=== PATIENT | male | born 1945 | race Caucasian/White ===

== ENCOUNTER → 2018-11-08 08:03 | Outpatient (CLI) | payer MEDICARE, SELFPAY ==
--- NOTE | 2018-11-08 08:12 | DI.RAD.S_ITS ---
PROCEDURE: XR CHEST 2V INDICATIONS: MALIGNANT NEOPLASM OF URINARY BLADDER, UNSPECIFIED SITE TECHNIQUE: 2 views of the chest were acquired. COMPARISON: [facility], CT, IVP (ABD & PEL WWO CONTRAST), 07/11/2013, 7:37. [facility], CT, CT IVP, 07/25/2017, 16:00. [facility], CR, CHEST 2 VIEW, 05/25/2011, 17:51. FINDINGS: Surgical changes and devices: None. Lungs and pleura: Lungs are mildly abnormal with a chronic appearing mild interstitial prominence previously present. This may reflect a prior smoking history. No pleural effusions or pneumothorax. Mediastinum: Mediastinal contours are normal. Heart size is normal. Bones and chest wall: No suspicious bony abnormalities. Soft tissues appear unremarkable. IMPRESSION: No metastatic disease found. Mild interstitial prominence, stable over time, possible prior smoking history. Dictated by: Meir Christian M.D. on 11/08/2018 at 8:45 Approved by: Meir Christian M.D. on 11/08/2018 at 8:46
[2018-11-08 10:06] LABS: Alanine Aminotransferase 28 IU/L (21-72); Albumin 3.8 g/dL (3.5-5.0); Albumin Globulin Ratio 1.3 (1.0-2.8); Alkaline Phosphatase 56 U/L (38-126); Aspartate Aminotransferase 28 IU/L (17-59); BUN Creatinine Ratio 20.8 (6-22); Bilirubin Total 0.8 mg/dL (0.2-1.3); Blood Urea Nitrogen 25 mg/dL (9-20); Carbon Dioxide 25 mmol/L (22-32); Chloride 100 mmol/L (98-107); Globulin 2.9 g/dL (1.7-4.1); Glucose 86 mg/dL (80-110); HEMOLYSIS < 15 (0-50); Potassium 4.3 mmol/L (3.4-5.1); Sodium 137 mmol/L (137-145); Total Protein 6.7 g/dL (6.3-8.2)
== END ==
PROVIDERS: Family Provider Internal Medicine; PCP Internal Medicine; Visit Provider Urology
DX: C67.9 Malignant neoplasm of bladder, unspecified (principal)
CPT/HCPCS: 36415; 71046; 80053

== ENCOUNTER → 2019-11-17 07:53 | Outpatient (CLI) | payer MEDICARE, SELFPAY ==
[2019-11-17 09:26] LABS: Alanine Aminotransferase 11 IU/L (<50); Albumin 4.3 g/dL (3.5-5.0); Albumin Globulin Ratio 1.4 (1.0-2.8); Alkaline Phosphatase 60 U/L (38-126); Aspartate Aminotransferase 33 IU/L (17-59); BUN Creatinine Ratio 24.6 (6-22); Bilirubin Total 0.9 mg/dL (0.2-1.3); Blood Urea Nitrogen 32 mg/dL (9-20); Calcium 9.3 mg/dL (8.4-10.2); Carbon Dioxide 24 mmol/L (22-32); Chloride 107 mmol/L (98-107); Cholesterol 210 mg/dL (140-199); Estimated Glomerular Filt Rate 53.7 mL/min (>60); Globulin 3.1 g/dL (1.7-4.1); Glucose 108 mg/dL (80-110); HDL Cholesterol 45 mg/dL (40-60); HEMOLYSIS < 15 (0-50); LDL Cholesterol Calculated 142 mg/dL (<100); Potassium 4.4 mmol/L (3.4-5.1); Sodium 140 mmol/L (137-145); Total Protein 7.4 g/dL (6.3-8.2); Triglycerides 113 mg/dL (35-150)
[2019-11-17 10:10] LABS: Vitamin B12 > 1000 pg/mL (239-931)
[2019-11-19 17:15] LABS: Prostate Specific Antigen < 0.064 ng/mL (0.10-4.00)
== END ==
PROVIDERS: Family Provider Internal Medicine; PCP Internal Medicine; Referring Provider Urology; Visit Provider Internal Medicine
DX: E78.5 Hyperlipidemia, unspecified (principal); D51.9 Vitamin B12 deficiency anemia, unspecified; Z85.46 Personal history of malignant neoplasm of prostate; Z85.51 Personal history of malignant neoplasm of bladder
CPT/HCPCS: 36415; 80053; 80061; 82607; 84153

== ENCOUNTER → 2019-11-21 10:10 | Outpatient (CLI) | payer MEDICARE, SELFPAY ==
--- NOTE | 2019-11-21 | DI.US.S_ITS ---
PROCEDURE: US RENAL COMPLETE INDICATIONS: HISTORY BLADDER CANCER TECHNIQUE: Real-time scanning was performed of the kidneys and bladder, with image documentation. COMPARISON: [facility], , RENAL COMPLETE, 07/14/2016, 9:59. [facility], , RENAL COMPLETE, 06/10/2015, 12:46. FINDINGS: Kidneys: Kidneys are normal in size. Right kidney measures 10.4 cm long; left kidney measures 10.9 cm long. Right renal cortical thickness is 1.4 cm; left renal cortical thickness is 1.7 cm. Renal cortical echotexture is normal. No hydronephrosis or nephrolithiasis. No suspicious solid mass lesions. There is a small simple cyst left kidney anteriorly, measuring up to 1.3 x 1.2 x 1.8 cm. 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 Miscellaneous: No free pelvic fluid. IMPRESSION: Normal-appearing kidneys, neobladder is not abnormally distended prior to voiding and post void residual is 41 cc. Dictated by: Meir Christian M.D. on 11/21/2019 at 13:20 Approved by: Meir Christian M.D. on 11/21/2019 at 13:22
--- NOTE | 2019-11-21 | DI.RAD.S_ITS ---
PROCEDURE: XR CHEST 2V INDICATIONS: Personal history of malignant neoplasm of bladder TECHNIQUE: 2 views of the chest were acquired. COMPARISON: CT, CT IVP, 07/25/2017, 16:00. [facility], CR, XR CHEST 2V, 11/08/2018, 8:26. [facility], CR, CHEST 2 VIEW, 05/25/2011, 17:51. FINDINGS: Surgical changes and devices: None. Lungs and pleura: Lungs are clear. No pleural effusions or pneumothorax. Mediastinum: Mediastinal contours are normal. Heart size is normal. Bones and chest wall: No suspicious bony abnormalities. Soft tissues appear unremarkable. IMPRESSION: Normal examination without evidence of mass lesion identified. Dictated by: Meir Christian M.D. on 11/21/2019 at 11:52 Approved by: Meir Christian M.D. on 11/21/2019 at 11:53
== END ==
PROVIDERS: Family Provider Internal Medicine; PCP Internal Medicine; Referring Provider Internal Medicine; Visit Provider Urology
DX: Z08 Encounter for follow-up examination after completed treatment for malignant neoplasm (principal); Z85.51 Personal history of malignant neoplasm of bladder
CPT/HCPCS: 71046; 76770

== ENCOUNTER 2020-12-10 13:51 | Emergency (ER) | payer OTHER, SELFPAY ==
[2020-12-10] VITALS (8 sets, daily range): BP systolic 130–179; BP diastolic 67–78; PULSE 50–60; RESP 12–20; TEMP 36.7; O2SAT 95–99; BMI 25.7
--- NOTE | 2020-12-10 14:04 | DI.RAD.S_ITS ---
PROCEDURE: XR CHEST 1V INDICATIONS: Possible stroke TECHNIQUE: One view of the chest was acquired. COMPARISON: [facility], CR, XR CHEST 2V, 11/21/2019, 10:16. FINDINGS: Surgical changes and devices: None. Lungs and pleura: Lungs are clear. No pleural effusions or pneumothorax. Mediastinum: Mediastinal contours appear normal. Heart size is normal. Bones and chest wall: No suspicious bony lesions. Overlying soft tissues appear unremarkable. IMPRESSION: No acute cardiopulmonary disease process. Dictated by: Mary Pal MD, PhD on 12/10/2020 at 14:44 Approved by: Mary Pal MD, PhD on 12/10/2020 at 14:45
--- NOTE | 2020-12-10 14:04 | DI.CT.S_ITS ---
PROCEDURE: CT STROKE INDICATIONS: confusion earlier,.sx resolved TECHNIQUE: Noncontrast 4.5 mm thick angled axial sections acquired from the foramen magnum to the vertex, with coronal reformats. For radiation dose reduction, the following was used: automated exposure control, adjustment of mA and/or kV according to patient size. COMPARISON: None. FINDINGS: Image quality: Excellent. CSF spaces: Basal cisterns are patent. No extra-axial fluid collections. The ventricles are symmetric in size and shape. Brain: No intracranial bleeds or masses. There is cerebral volume loss for age, with resultant ventricular and sulcal prominence. There are periventricular and deep white matter chronic small vessel ischemic changes. Small chronic left thalamic lacunar infarct. There is intracranial internal carotid artery atherosclerosis. Skull and face: Calvarium and visualized facial bones appear intact, without suspicious lesions. Sinuses: Visualized sinuses and mastoids are clear. IMPRESSION: No acute intracranial disease process. Findings telephoned to Dr. Car on December 10, 2020 at 2:29 p.m. This study fulfills neurological imaging criteria for inclusion or exclusion of acute stroke therapies based on available published neurological guidelines. Dictated by: Mary Pal MD, PhD on 12/10/2020 at 14:29 Approved by: Mary Pal MD, PhD on 12/10/2020 at 14:31
[2020-12-10 14:20] LABS: Add Manual Diff / Slide Review NO; Basophils Absolute Auto 0 /uL (0-100); Basophils Percent Auto 0.6 % (0-2); Eosinophils Absolute Auto 100 /uL (0-450); Eosinophils Percent Auto 0.9 % (2-4); Hematocrit 44.7 % (41-53); Hemoglobin 15.3 g/dL (13.5-17.5); Lymphocytes Absolute Auto 800 /uL (1100-4500); Lymphocytes Percent Auto 12.7 % (25-40); Mean Corpuscular HGB Conc 34.2 % (30-36); Mean Corpuscular Hemoglobin 30.7 PG (26-34); Mean Corpuscular Volume 89.7 fL (80-100); Monocytes Absolute Auto 400 /uL (0-900); Monocytes Percent Auto 6.2 % (3-14); Neutrophils Absolute Auto 5100 /uL (1500-7000); Neutrophils Percent Auto 79.6 % (50-75); Platelet Count 210 X10^3/uL (150-400); Red Blood Cell Count 4.99 X10^6/uL (4.5-5.9); Red Cell Distribution Width 13.2 % (11.6-14.8); White Blood Cell Count 6.4 X10^3/uL (4.5-11.0)
--- NOTE | 2020-12-10 14:22 | ED.NEUROSD ---
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. His reports that all of a sudden he did not know where he was, how he got there, what they were doing had perseverating questions regarding why they were there. Once off the chair lift he was able to ski down to the bottom with amount without any difficulties. He has had no additional neurologic complaints and specifically no fevers, cough, chills, chest pain, dyspnea, abdominal pain, diarrhea or vomiting. Related Data Home Medications Medication Instructions Recorded Confirmed Fluticasone Propionate (FLONASE) #0 08/06/11 Multivitamin, Minerals, and 1 tab PO Q DAY #0 08/06/11 (#CENTRUM SILVER) ascorbic acid (vitamin C) #0 08/06/11 ketoconazole 1 roni TOPICAL #0 09/02/17 Allergies Allergy/AdvReac Type Severity Reaction Status Date / Time No Known Drug Allergies Allergy Verified 12/10/20 14:06 Review of Systems Review of Systems Narrative: Remainder of review of systems including constitutional, ENT, cardiovascular, respiratory, GI, , musculoskeletal, skin, neurologic and psychiatric systems reviewed and are unremarkable except as noted in HPI. Patient History Medical History Amnesia, global, transient Social History Smoking Status: Unknown if ever smoked Smoking Status: Unknown if ever smoked alcohol intake frequency: holidays/special occasions only Substance Use Type: does not use Exam Narrative Exam Narrative: General: Healthy appearing, in no acute distress. Able to give a complete and coherent history. Well-nourished well-developed HEENT: Moist mucous membranes, normal sclera with reactive pupils, Neck: No JVD, supple Respiratory: Lungs are clear to auscultation, no wheezing no rales no rhonchi. Full and symmetrical air movement Cardiac: Regular rate and rhythm no murmurs no bruits Abdomen: Soft, nontender, good bowel tones, no flank pain Skin: Warm and dry, no rashes Neurologic: Grossly neurologically intact with no obvious asymmetries or abnormalities Extremities: No trauma, well perfused Psych: Cooperative, appropriate insight and affect NIH=0 Initial Vital Signs Initial Vital Signs: Vital Signs Temperature 98.1 F 12/10/20 14:00 Pulse Rate 58 L 12/10/20 14:00 Respiratory Rate 14 12/10/20 14:00 Blood Pressure 179/78 H 12/10/20 14:00 Pulse Oximetry 99 12/10/20 14:00 Course Orders Ordered: ED Orders 12/10/20 14:04 CT Stroke Stat XR chest 1V Stat EKG-12 Lead Stat 12/10/20 14:10 Complete Blood Count AUTO DIFF Stat Comprehensive Metabolic Panel Stat Partial Thromboplastin Time Stat Prothrombin Time INR Stat Troponin & CK Cardiac Panel Stat 12/10/20 14:20 Urine Culture Stat Urine Microscopic Stat Vital Signs Vital signs: Vital Signs - 8 hr 12/10/20 14:00 12/10/20 14:24 12/10/20 14:25 Temperature 98.1 F Pulse Rate 58 L 56 L 57 L Respiratory Rate 14 12 16 Blood Pressure 179/78 H 156/73 H Pulse Oximetry 99 97 97 12/10/20 14:30 12/10/20 14:49 12/10/20 15:00 Temperature Pulse Rate 60 53 L 55 L Respiratory Rate 20 12 19 Blood Pressure 144/67 H Pulse Oximetry 98 96 96 12/10/20 15:27 12/10/20 15:30 Temperature Pulse Rate 50 L 52 L Respiratory Rate 15 17 Blood Pressure 130/72 Pulse Oximetry 95 96 MDM - Neuro Symptoms/Deficit Medical Records Attestation: I reviewed the patient's medical records. Lab Data Attestation: I reviewed the patient's lab results. Result diagrams: 12/10/20 14:10 12/10/20 14:10 Labs: Lab Results 12/10/20 12/10/20 12/10/20 Range/Units 14:10 14:10 14:10 WBC 6.4 (4.5-11.0) X10^3/uL RBC 4.99 (4.5-5.9) X10^6/uL Hgb 15.3 (13.5-17.5) g/dL Hct 44.7 (41-53) % MCV 89.7 (80-100) fL MCH 30.7 (26-34) PG MCHC 34.2 (30-36) % RDW 13.2 (11.6-14.8) % Plt Count 210 (150-400) X10^3/uL Neut % (Auto) 79.6 H (50-75) % Lymph % (Auto) 12.7 L (25-40) % [place] % (Auto) 6.2 (3-14) % Eos % (Auto) 0.9 L (2-4) % Baso % (Auto) 0.6 (0-2) % Neut # (Auto) 5100 (8883-1595) /uL Lymph # (Auto) 800 L (8899-0937) /uL [place] # (Auto) 400 (0-900) /uL Eos # (Auto) 100 (0-450) /uL Baso # (Auto) 0 (0-100) /uL PT 12.1 (10.1-12.7) SECONDS INR 1.1 (0.9-1.3) APTT 26 L (26.4-36.2) SECONDS Sodium 137 (137-145) mmol/L Potassium 4.1 (3.4-5.1) mmol/L Chloride 103 (98-107) mmol/L Carbon Dioxide 26 (22-32) mmol/L BUN 25 H (9-20) mg/dL Creatinine 1.17 (0.66-1.25) mg/dL Estimated GFR > 60.0 (>60) mL/min BUN/Creatinine Ratio 21.4 (6-22) Glucose 91 (80-110) mg/dL Calcium 9.3 (8.4-10.2) mg/dL Total Bilirubin 0.7 (0.2-1.3) mg/dL AST 28 (17-59) IU/L ALT 11 (<50) IU/L Alkaline Phosphatase 73 (38-126) U/L Total Creatine Kinase 87 (55-170) U/L CK-MB (CK-2) TNP CK-MB (CK-2) Rel Index TNP Troponin I 0.067 H (0.01-0.034) ng/mL Total Protein 7.3 (6.3-8.2) g/dL Albumin 4.4 (3.5-5.0) g/dL Globulin 2.9 (1.7-4.1) g/dL Albumin/Globulin Ratio 1.5 (1.0-2.8) Urine RBC (0-5/HPF) Urine WBC (0-5/HPF) Urine Bacteria (None) Urine Mucus (Negative) Ur Culture Indicated? 12/10/20 Range/Units 14:20 WBC (4.5-11.0) X10^3/uL RBC (4.5-5.9) X10^6/uL Hgb (13.5-17.5) g/dL Hct (41-53) % MCV (80-100) fL MCH (26-34) PG MCHC (30-36) % RDW (11.6-14.8) % Plt Count (150-400) X10^3/uL Neut % (Auto) (50-75) % Lymph % (Auto) (25-40) % [place] % (Auto) (3-14) % Eos % (Auto) (2-4) % Baso % (Auto) (0-2) % Neut # (Auto) (3432-6313) /uL Lymph # (Auto) (1183-2683) /uL [place] # (Auto) (0-900) /uL Eos # (Auto) (0-450) /uL Baso # (Auto) (0-100) /uL PT (10.1-12.7) SECONDS INR (0.9-1.3) APTT (26.4-36.2) SECONDS Sodium (137-145) mmol/L Potassium (3.4-5.1) mmol/L Chloride (98-107) mmol/L Carbon Dioxide (22-32) mmol/L BUN (9-20) mg/dL Creatinine (0.66-1.25) mg/dL Estimated GFR (>60) mL/min BUN/Creatinine Ratio (6-22) Glucose (80-110) mg/dL Calcium (8.4-10.2) mg/dL Total Bilirubin (0.2-1.3) mg/dL AST (17-59) IU/L ALT (<50) IU/L Alkaline Phosphatase (38-126) U/L Total Creatine Kinase (55-170) U/L CK-MB (CK-2) CK-MB (CK-2) Rel Index Troponin I (0.01-0.034) ng/mL Total Protein (6.3-8.2) g/dL Albumin (3.5-5.0) g/dL Globulin (1.7-4.1) g/dL Albumin/Globulin Ratio (1.0-2.8) Urine RBC 10-30/hpf H (0-5/HPF) Urine WBC 10-30/hpf H (0-5/HPF) Urine Bacteria Occasional (0-1) (None) Urine Mucus 2+ H (Negative) Ur Culture Indicated? Specimen cultured Point of Care Testing Glucose POC 80 Urine Dip Bedside Urine Glucose Negative Bedside Urine Bilirubin - Negative Bedside Urine Ketone +/- 5 Urine Specific [place] 1.030 Bedside Urine Occult Blood +/- Bedside Urine Protein +/- 15 Bedside Urine Urobilinogen - Negative Bedside Urine Nitrite - Negative Bedside Urine Leukocytes - Negative Esterase Urine has been cultured, it is from a neobladder, I do not suspect infection at this time. Imaging Data CT scan - head: Radiologist's Impression: FINDINGS: Image quality: Excellent. CSF spaces: Basal cisterns are patent. No extra-axial fluid collections. The ventricles are symmetric in size and shape. Brain: No intracranial bleeds or masses. There is cerebral volume loss for age, with resultant ventricular and sulcal prominence. There are periventricular and deep white matter chronic small vessel ischemic changes. Small chronic left thalamic lacunar infarct. There is intracranial internal carotid artery atherosclerosis. Skull and face: Calvarium and visualized facial bones appear intact, without suspicious lesions. Sinuses: Visualized sinuses and mastoids are clear. IMPRESSION: No acute intracranial disease process. Findings telephoned to Dr. Car on December 10, 2020 at 2:29 p.m. This study fulfills neurological imaging criteria for inclusion or exclusion of acute stroke therapies based on available published neurological guidelines. Dictated by: Mary Pal MD, PhD on 12/10/2020 at 14:29 ECG Data Attestation: I personally reviewed and interpreted this ECG as follows: Interpretation: Sinus bradycardia at a rate of 55 Right bundle branch block Normal axis No acute ischemic changes Discharge Plan Departure Patient Disposition: Home Clinical Impression: Amnesia, global, transient Instructions: DI for Transient Global Amnesia Activity Restrictions/Additional Instructions: Thank you for coming in today Your CT scan of your head was very reassuring. The blood work with equally reassuring. I am not finding any evidence of stroke, tumors, blood clots, infection or other life-threatening reasons to explain your symptoms today. Your symptoms and exam are very consistent with transient global amnesia. This is an odd diagnosis but it results and is not a precursor to developing dementia or likelihood of stroke. I would encourage you to follow-up with your primary care physician in the next couple of days and if you have recurrent symptoms, please return to the emergency department. I wish you the best Prescriptions: No Action Multivitamin, Minerals, and (#CENTRUM SILVER) 1 tab PO Q DAY Qty: 0 RF: 0 ascorbic acid (vitamin C) 500 MG tablet Qty: 0 RF: 0 Fluticasone Propionate (FLONASE) Qty: 0 RF: 0 ketoconazole 2 % shampoo 1 roni Topical Qty: 0 RF: 0 Referrals: Grant Dyson MD [Primary Care Provider] -
[2020-12-10 14:27] LABS: INR 1.1 (0.9-1.3); Prothrombin Time 12.1 SECONDS (10.1-12.7)
[2020-12-10 14:30] LABS: PTT Partial Thromboplastin Tim 26 SECONDS (26.4-36.2)
[2020-12-10 14:32] LABS: Alanine Aminotransferase 11 IU/L (<50); Albumin 4.4 g/dL (3.5-5.0); Albumin Globulin Ratio 1.5 (1.0-2.8); Alkaline Phosphatase 73 U/L (38-126); Aspartate Aminotransferase 28 IU/L (17-59); BUN Creatinine Ratio 21.4 (6-22); Bilirubin Total 0.7 mg/dL (0.2-1.3); Blood Urea Nitrogen 25 mg/dL (9-20); Calcium 9.3 mg/dL (8.4-10.2); Carbon Dioxide 26 mmol/L (22-32); Chloride 103 mmol/L (98-107); Creatine Kinase 87 U/L (55-170); Estimated Glomerular Filt Rate > 60.0 mL/min (>60); Globulin 2.9 g/dL (1.7-4.1); Glucose 91 mg/dL (80-110); HEMOLYSIS < 15 (0-50); Potassium 4.1 mmol/L (3.4-5.1); Sodium 137 mmol/L (137-145); Total Protein 7.3 g/dL (6.3-8.2)
[2020-12-10 14:43] LABS: Troponin I 0.067 ng/mL (0.01-0.034)
[2020-12-10 15:18] LABS: Bacteria Urine Occasional (0-1); Mucus Urine 2+ (Negative); RBC Urine 10-30/HPF (0-5/HPF); WBC Urine 10-30/HPF (0-5/HPF)
[2020-12-10 15:19] LABS: Culture Indicated Urine Specimen Cultured
== END 2020-12-10 15:57 | disposition home or self-care (01) ==
PROVIDERS: Emergency Provider Emergency Medicine; Family Provider Internal Medicine; PCP Internal Medicine
DX: G45.4 Transient global amnesia (principal); I45.10 Unspecified right bundle-branch block; R00.1 Bradycardia, unspecified
CPT/HCPCS: 36415; 70450; 71045; 80053; 81003; 81015; 82550; 82962; 84484; 85025; 85610; 85730; 87086; 93005; 93010; 99284; 99285

== ENCOUNTER → 2021-02-25 07:07 | Outpatient (CLI) | payer OTHER, SELFPAY ==
[2021-02-25 08:24] LABS: Alanine Aminotransferase 9 IU/L (<50); Albumin 3.9 g/dL (3.5-5.0); Albumin Globulin Ratio 1.4 (1.0-2.8); Alkaline Phosphatase 61 U/L (38-126); Aspartate Aminotransferase 27 IU/L (17-59); BUN Creatinine Ratio 20.5 (6-22); Bilirubin Total 0.6 mg/dL (0.2-1.3); Blood Urea Nitrogen 23 mg/dL (9-20); Calcium 9.2 mg/dL (8.4-10.2); Carbon Dioxide 26 mmol/L (22-32); Chloride 106 mmol/L (98-107); Estimated Glomerular Filt Rate > 60.0 mL/min (>60); Globulin 2.8 g/dL (1.7-4.1); Glucose 103 mg/dL (80-110); HEMOLYSIS < 15 (0-50); Sodium 136 mmol/L (137-145); Total Protein 6.7 g/dL (6.3-8.2)
[2021-02-25 08:51] LABS: Prostate Specific Antigen < 0.064 ng/mL (0.10-4.00)
[2021-02-25 09:09] LABS: Vitamin B12 943 pg/mL (239-931)
== END ==
PROVIDERS: Family Provider Internal Medicine; PCP Internal Medicine; Referring Provider Urology; Visit Provider Urology
DX: Z85.46 Personal history of malignant neoplasm of prostate (principal); Z85.51 Personal history of malignant neoplasm of bladder
CPT/HCPCS: 36415; 80053; 82607; 84153

== ENCOUNTER → 2021-02-26 14:24 | Outpatient (CLI) | payer OTHER, SELFPAY ==
--- NOTE | 2021-02-26 14:27 | DI.US.S_ITS ---
PROCEDURE: US RENAL COMPLETE INDICATIONS: Personal history of malignant neoplasm of bladder, cystectomy and neobladder TECHNIQUE: Real-time scanning was performed of the kidneys and bladder, with image documentation. COMPARISON: [facility], , RENAL COMPLETE, 11/21/2019, 10:49. FINDINGS: Kidneys: Kidneys are normal in size. Right kidney measures 10.1 cm long; left kidney measures 10.5 cm long. Right renal cortical thickness is 1.6 cm; left renal cortical thickness is 1.6 cm. Renal cortical echotexture is normal. Mild bilateral hydronephrosis resolved after voiding. 14 mm left renal cyst noted. Bladder: Pre-void bladder volume is 328 mL. Post-void residual is 0 mL. Pre-void images show intraluminal debris. On pre-void images, right ureteral jet was observed. The left ureteral jet was not observed. (Of note, ureteral jets may not be detectable in up to 25% of cases due to insufficient differences in specific gravity between ureteral and bladder urine). Miscellaneous: No free pelvic fluid. IMPRESSION: 1. Mild bilateral hydronephrosis resolves after voiding. 2. Intraluminal bladder debris prevoid. No postvoid residual. Dictated by: Dillon Limon M.D. on 02/26/2021 at 15:16 Approved by: Dillon Limon M.D. on 02/26/2021 at 16:30
== END ==
PROVIDERS: Family Provider Internal Medicine; PCP Internal Medicine; Referring Provider Urology; Visit Provider Urology
DX: Z85.51 Personal history of malignant neoplasm of bladder (principal); Z08 Encounter for follow-up examination after completed treatment for malignant neoplasm; N28.1 Cyst of kidney, acquired; N13.30 Unspecified hydronephrosis
CPT/HCPCS: 76770

== ENCOUNTER → 2022-02-03 10:45 | Outpatient (CLI) | payer OTHER, SELFPAY ==
--- NOTE | 2022-02-03 | DI.RAD.S_ITS ---
PROCEDURE: XR CHEST 2V INDICATIONS: MALIGNANT NEOPLASM OF BLADDER AND PROSTATE TECHNIQUE: 2 views of the chest were acquired. COMPARISON: [facility], CR, XR CHEST 1V, 12/10/2020, 14:08. FINDINGS: Surgical changes and devices: None. Lungs and pleura: Lungs are clear. No pleural effusions or pneumothorax. Mediastinum: Mediastinal contours are normal. Heart size is normal. Bones and chest wall: No suspicious bony abnormalities. Soft tissues appear unremarkable. IMPRESSION: No acute cardiopulmonary abnormality. Dictated by: Amrik Manrique M.D. on 02/03/2022 at 13:14 Approved by: Amrik Manrique M.D. on 02/03/2022 at 13:14
[2022-02-03 13:09] LABS: Alanine Aminotransferase 10 IU/L (<50); Albumin 3.8 g/dL (3.5-5.0); Albumin Globulin Ratio 1.5 (1.0-2.8); Alkaline Phosphatase 56 U/L (38-126); Aspartate Aminotransferase 25 IU/L (17-59); BUN Creatinine Ratio 16.5 (6-22); Bilirubin Total 0.5 mg/dL (0.2-1.3); Blood Urea Nitrogen 21 mg/dL (9-20); Calcium 8.4 mg/dL (8.4-10.2); Carbon Dioxide 25 mmol/L (22-32); Chloride 106 mmol/L (98-107); Estimated Glomerular Filt Rate 58 mL/min (>60); Globulin 2.6 g/dL (1.7-4.1); Glucose 106 mg/dL (80-110); HEMOLYSIS < 15 (0-50); Potassium 4.3 mmol/L (3.4-5.1); Sodium 138 mmol/L (137-145); Total Protein 6.4 g/dL (6.3-8.2)
[2022-02-03 13:55] LABS: Vitamin B12 352 pg/mL (239-931)
== END ==
PROVIDERS: Family Provider Internal Medicine; PCP Student in an Organized Health Care Education/Training Program; Referring Provider Urology; Visit Provider Urology
DX: C67.9 Malignant neoplasm of bladder, unspecified (principal); C61 Malignant neoplasm of prostate
CPT/HCPCS: 36415; 71046; 80053; 82607

== ENCOUNTER → 2022-02-11 12:26 | Outpatient (CLI) | payer OTHER, SELFPAY ==
--- NOTE | 2022-02-11 | DI.US.S_ITS ---
PROCEDURE: US RENAL COMPLETE INDICATIONS: Malignant neoplasm of bladder, unspecified TECHNIQUE: Real-time scanning was performed of the kidneys and bladder, with image documentation. COMPARISON: [facility], , RENAL COMPLETE, 02/26/2021, 13:43. FINDINGS: Kidneys: Kidneys are normal in size. Right kidney measures 10.4 cm long; left kidney measures 10.8 cm long. Right renal cortical thickness is 0.9 cm; left renal cortical thickness is 1.1 cm. Renal cortical echotexture is normal. No hydronephrosis or nephrolithiasis. No suspicious solid mass lesions. Exophytic cyst arises from the midpole left kidney and measures 1.6 x 1.7 x 2.0 cm, minimally increased in size compared to the prior study. Bladder: Pre-void neobladder volume is 270 mL. Post-void residual is 0 mL. Pre-void images demonstrate no intraluminal masses or stones. On pre-void images, neither ureteral jets are noted with color Doppler interrogation. (Of note, ureteral jets may not be detectable in up to 25% of cases due to insufficient differences in specific gravity between ureteral and bladder urine). Miscellaneous: No free pelvic fluid. IMPRESSION: 1. Single left renal cyst, otherwise normal renal morphology. 2. Normal appearance of the neobladder. Dictated by: Batsheva Wood M.D. on 02/11/2022 at 13:47 Approved by: Batsheva Wood M.D. on 02/11/2022 at 13:51
== END ==
PROVIDERS: Family Provider Internal Medicine; PCP Student in an Organized Health Care Education/Training Program; Referring Provider Urology; Visit Provider Urology
DX: C67.9 Malignant neoplasm of bladder, unspecified (principal); C61 Malignant neoplasm of prostate; Q61.01 Congenital single renal cyst
CPT/HCPCS: 76770